=== PATIENT | female | born 1990 | race African-American/Black ===

== ENCOUNTER 2020-05-24 15:32 | Emergency (ER) | payer OTHER, SELFPAY ==
--- NOTE | ~2020-05-24 | XR_ITS ---
EXAMINATION: XR forearm RT 2V DATE: 05/24/2020 16:18 INDICATION: Right forearm pain. TECHNIQUE: 2 views of right forearm were obtained. COMPARISON: None. FINDINGS: Bone alignment is normal. No fracture. Joint spaces are well maintained. There is no elbow joint effusion. IMPRESSION: 1. Normal right forearm. Reviewed, dictated and finalized at location B. IMPRESSION: 1. Normal right forearm.
[2020-05-24 15:43] VITALS: BP 123/76; PULSE 95; RESP 16; TEMP 36.7; O2SAT 99
--- NOTE | 2020-05-24 17:18 | ED.EXTPRO ---
HPI - Extremity Problem General Chief complaint: Extremity Problem,Nontraumatic Stated complaint: right wrist pain Time Seen by Provider: 05/24/20 17:03 Source: RN notes reviewed History of Present Illness HPI Narrative: Patient presents to emergency department from home for right thumb pain patient states patient began to have symptoms 2 weeks ago. She notes pain over the posterior aspect of the right thumb into the right wrist. Described as aching in nature. Patient states that time she wake up in the morning with some numbness in this region the resolves that she starts to move around in the morning. She states pain is worse with flexion of the wrist and extension of the thumb. She denies any direct trauma or injury. 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 Denies any other symptoms at this time denies any pain in the remainder of the right hand or elbow Related Data Allergies Allergy/AdvReac Type Severity Reaction Status Date / Time No Known Allergies Allergy Verified 05/24/20 15:47 Review of Systems Review of Systems: Narrative: Gen.: Denies fevers or chills Musculoskeletal: See HPI Neuro: Denies numbness, tingling, weakness Skin: Denies rash Endo: Denies DM PMFSH Past Medical History Medical History (Updated 05/24/20 @ 17:21 by Jose Angel Copeland DO) Patient denies significant medical history Social History Social History (Updated 05/24/20 @ 17:19 by Jose Angel Copeland DO) Smoking status: Current some day smoker Gender identity (if verbalized by the patient): Female Exam Narrative: Exam Narrative: APPEARANCE: No acute distress, nontoxic, resting in bed Eyes: EOMI HEENT: Normocephalic, atraumatic, RESPIRATORY: No respiratory distress MUSCULOSKELETAl: No tenderness to palpation over the right thumb or hand, radial pulse 2+, neurovascular intact, positive Agustina test no tenderness of the elbow full flexion and extension of the first PIP and MCP with pain with full extension and flexion of the MCP NEURO: Awake and alert. Following commands, speech normal, no focal deficits SKIN:: Warm, dry. Normal Color no rash or lesions Course Course Emergency Course: Discussed with patient results of workup and diagnosis. Discussed need for follow-up with primary care, proper use of medication, and reasons to return to the emergency department. Patient understands and agrees to current treatment plan Vital Signs Vital signs: Vital Signs Temperature 98.1 F 05/24/20 15:43 Pulse Rate 95 05/24/20 15:43 Respiratory Rate 16 05/24/20 15:43 Blood Pressure 123/76 05/24/20 15:43 Pulse Oximetry 99 05/24/20 15:43 Temperature 98.1 F 05/24/20 15:43 Pulse Rate 95 05/24/20 15:43 Respiratory Rate 16 05/24/20 15:43 Blood Pressure 123/76 05/24/20 15:43 Pulse Oximetry 99 05/24/20 15:43 MDM - Extremity (Nontraumatic) Imaging Data Radiologist's impression: ITS Impressions Forearm X-Ray 05/24/20 16:19 IMPRESSION: 1. Normal right forearm. Discharge Plan Discharge Clinical Impression: De Quervain's tenosynovitis Patient Disposition: Home, Self-Care Condition: Stable Instructions: Antibiotic Form, De Quervain Disease (ED) Additional Instructions: Return for increasing pain numbness or tingling in the extremities or any other symptoms of concern. Obtain a thumb spica splint from your local drugstore and wear it for the next 1 week Prescriptions: New ibuprofen [IBU] 600 mg tablet 600 mg PO Q6H PRN (Reason: pain) Qty: 20 RF: 0 Follow-up/Referrals: Cristobal Guzmán MD [Physician] - (Follow-up in 3 to 4 days for further orthopedic treatment and evaluation) PHYSICIAN,[employer] [Primary Care Provider] - Stand Alone Forms: Work/School Release IP Time of Disposition: 17:22
[2020-05-24] MEDS: IBUPROFEN 600 MG TABLET PO (17:35)
[2020-05-24 17:55] VITALS: PULSE 60; RESP 12
== END 2020-05-24 18:00 | disposition home or self-care (01) ==
PROVIDERS: Emergency Provider Emergency Medicine
DX: M65.4 Radial styloid tenosynovitis [de Quervain] (principal); F17.200 Nicotine dependence, unspecified, uncomplicated
CPT/HCPCS: 73090; 99283; A9270

== ENCOUNTER 2021-02-11 19:14 | Emergency (ER) | payer OTHER, SELFPAY ==
--- NOTE | ~2021-02-11 | CT_ITS ---
EXAMINATION: CT abdomen pelvis w con INDICATION: Abdominal pain TECHNIQUE: Computed tomographic images of the abdomen and pelvis were obtained after the administrati on of 100 cc of Omnipaque 350 intravenous contrast. The dose-length product (DLP) was 883.96 mGy-cm. Automated exposure control and iterative reconstruction technique were employed. COMPARISON: 11/29/2015 FINDINGS: The lung bases are clear. The heart size is normal. The liver, spleen, pancreas, gallbladde r, and adrenal glands are normal. The kidneys are unremarkable. No pathologically enlarged abdominal or pelvic lymph nodes are identified. There is no free intraperitoneal gas or evidence of bowel obstr uction. The appendix is normal. There is a 6.1 cm soft tissue density lesion in the pelvis located po sterior to the uterus, likely related to the left ovary. There are phleboliths of the pelvis. The vis ualized osseous structures are unremarkable. IMPRESSION: 1. Soft tissue density lesion of the pelvis, possibly reflecting a hemorrhagic cyst of the left ovary . Further evaluation with pelvic ultrasound is recommended to assess this lesion and ovarian vascular flow. Reviewed, dictated and finalized at location A. IMPRESSION: 1. Soft tissue density lesion of the pelvis, possibly reflecting a hemorrhagic cyst of the left ovary. Further evaluation with pelvic ultrasound is recommende d to assess this lesion and ovarian vascular flow.
--- NOTE | ~2021-02-11 | US_ITS ---
EXAMINATION: US pelvic complete w TV DATE: 02/11/2021 23:53 INDICATION: Pelvic pain TECHNIQUE: Multiple transabdominal and endovaginal sonographic images of the pelvis were obtained. COMPARISON: CT from today FINDINGS: The uterus measures 8.4 x 4.4 x 4.9 cm. The endometrial complex measures 9 mm. There is foc al heterogeneity of the myometrium in the anterior uterus adjacent to the endometrial complex. The ri ght ovary measures 2.9 x 4.6 x 3.0 cm. There is a 2.1 x 1.3 cm cystic lesion of the right ovary with a reticular pattern of internal echoes. The left ovary measures 6.7 x 3.8 x 3.7 cm. There is a 4.4 x 3 cm lesion of the left ovary with homogeneous low-level internal echoes. There is normal vascular fl ow in the ovaries. There is no free fluid in the pelvis. IMPRESSION: 1. Normal vascular flow to the ovaries. 2. Likely endometrioma of the left ovary. Follow-up pelvic ultrasound in 6-12 weeks is recommended. 3. Hemorrhagic cyst of the right ovary. 4. Possible adenomyosis of the uterus. Attention on follow-up examination is recommended. Reviewed, dictated and finalized at location A. IMPRESSION: 1. Normal vascular flow to the ovaries. 2. Likely endometrioma of the left ovary. Follow-up pelvic ultrasound in 6-12 w eeks is recommended. 3. Hemorrhagic cyst of the right ovary. 4. Possible adenomyosis of the uterus. Attention on follow-up examination is re commended.
[2021-02-11 19:22] VITALS: BP 139/85; PULSE 108; RESP 18; TEMP 37.4; O2SAT 99
[2021-02-11 19:38] LABS: Basophils Percent Auto 0.1 % (0.2-1.2); Eosinophils Percent Auto 0.1 % (0-4.4); Hematocrit 33.2 % (37.0-47.0); Hemoglobin 11.8 g/dL (12.0-15.0); Immature Granulocyte Absolute 0.05 K/mm3 (0.00-0.031); Immature Granulocyte Percent A 0.4 % (0-0.5); Lymphocytes Absolute Auto 1.27 K/mm3 (0.9-3.2); Lymphocytes Percent Auto 10.4 % (18.3-44.2); Mean Corpuscular HGB Conc 35.5 g/dl (32-36); Mean Corpuscular Hemoglobin 27.5 pg (26-34); Mean Corpuscular Volume 77.4 fl (80-100); Mean Platelet Volume 10.3 fl (7.4-10.4); Monocytes Absolute Auto 0.6 K/mm3 (0.1-0.6); Monocytes Percent Auto 5.2 % (2.6-8.5); Neutrophils Absolute Auto 10.2 K/mm3 (1.3-6.7); Neutrophils Percent Auto 83.8 % (45.5-73.1); Platelet Count Result 277 k/mm3 (150-375); Red Blood Count 4.29 M/mm3 (4.2-5.4); Red Cell Distribution Width 15.5 % (11.5-14.5); White Blood Count 12.2 K/mm3 (4.5-10.0)
[2021-02-11 19:49] LABS: Alanine Aminotransferase 24 U/L (4-35); Albumin Level 4.3 g/dL (3.5-5.1); Alkaline Phosphatase 63 U/L (38-126); Anion Gap 9 mmol/L (8-16); Aspartate Amino Transferase 24 U/L (14-36); Bilirubin,Total 0.9 mg/dL (0.2-1.3); Blood Urea Nitrogen 7 mg/dL (7-17); Calcium 9.1 mg/dL (8.4-10.2); Carbon Dioxide 24 mmol/L (22-30); Chloride 103 mmol/L (98-107); Estimated CRCL calculation 129 ml/min; Estimated Glomerular Filt Rate > 60; Glucose 100 mg/dL (65-105); Lipase 32 U/L (23-300); Potassium 3.7 mmol/L (3.4-5.0); Sodium 136 mmol/L (137-145)
[2021-02-11 20:15] LABS: Add Urine Microscopic? YES; Appearance Urine Cloudy (Clear); Bacteria Urine Trace /hpf; Bilirubin Urine Negative (Negative); Blood Urine Negative (Negative); Color Urine Yellow (Yellow); Glucose Urine UA Negative (Negative); Ketones Urine Negative (Negative); Leukocyte Esterase Ur Negative LEU/UL (Negative); Mucus Urine Heavy /lpf; Nitrate Urine Negative (Negative); Protein Urine 1+ mg/dL (Negative); Specific Grav Ur 1.028 (1.001-1.035); Squamous Epithelial Cell Urine Many /hpf (Few); WBC Urine 0-3 /hpf
[2021-02-11 20:34] VITALS: BP 146/88; PULSE 96; RESP 26; TEMP 38.2; O2SAT 100
--- NOTE | 2021-02-11 20:38 | PC.NURSE ---
Pt presents to ED with complaints of abdominal pain that has been persistent for the past 2 days. Pt denies sick contacts and states she has been experiencing nausea, emesis, chills and diarrha. X3 episodes of emesis today and x2 episodes of diarrhea. 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 Pt noted to be alert and oriented x4 and in no obvious distress with stable vitals. Call button and personal items within reach. Pt advised to press call button for assistance.
--- NOTE | 2021-02-11 20:50 | ED.ABDPAIN ---
HPI - Abdominal Pain General Chief Complaint: Abdominal Pain Stated Complaint: abdominal pain Time Seen by Provider: 02/11/21 19:38 Source: patient Mode of arrival: ambulatory Limitations: no limitations History of Present Illness HPI narrative: Patient is a 30 year old female who presents with complaints of abdominal pain x 2 days. She reports nausea, vomiting and diarrhea. She reports pain is pressure and cramping . She denies sick contacts, she denies taking over the counter medications.She denies significant medical history. MD elicited complaint: abdominal pain Related Data Allergies Allergy/AdvReac Type Severity Reaction Status Date / Time No Known Allergies Allergy Verified 02/11/21 19:25 Review of Systems Review of Systems: Narrative: CONSTITUTIONAL: Denies fever, chills, or sweats. EYES: Denies visual changes, redness, or discharge. ENT: Denies rhinorrhea, congestion, sore throat, or otalgia. CARDIOVASCULAR: Denies chest pain, palpitations, or edema. RESPIRATORY: Denies cough or dyspnea. GASTROINTESTINAL: Reports abdominal pain, nausea, vomiting, or diarrhea. GENITOURINARY: Denies dysuria or hematuria. SKIN: Denies rash or itching. MUSCULOSKELETAL: Denies back pain, joint pain, or myalgia. NEUROLOGIC: Denies headache, numbness, dizziness, or weakness. PSYCHIATRIC: Denies anxiety or depression. [facility] Past Medical History Medical History (Updated 02/12/21 @ 00:42 by ALBA You) Patient denies significant medical history Social History Social History (Updated 02/11/21 @ 20:55 by ALBA You) Smoking status: Current some day smoker Tobacco type: cigarettes Alcohol intake: current Alcohol use details: occasional Gender identity (if verbalized by the patient): Female Exam Narrative: Exam Narrative: GENERAL: Well-appearing, well-nourished, and in no acute distress. HEAD: Normocephalic, atraumatic. EYES: EOMI. No redness or drainage. Conjunctiva are normal. ENT: Mucous membranes pink and moist. CHEST: No respiratory distress. Clear to auscultation. HEART: Regular rate and rhythm. No murmur appreciated. Normal peripheral pulses. GI: Soft, nontender without rebound, or guarding. No distention. Bowel sounds normal in all quadrants. MUSCULOSKELETAL: No bony tenderness. EXTREMITIES: Normal range of motion. No edema. SKIN: Warm, dry, no rash. NEURO: No focal deficits. Alert and oriented x3. Gait steady. PSYCH: Normal affect. No signs of depression or anxiety. Course Vital Signs Vital signs: Vital Signs Temperature 37.4 C 02/11/21 19:22 Pulse Rate 108 H 02/11/21 19:22 Respiratory Rate 18 02/11/21 19:22 Blood Pressure 139/85 02/11/21 19:22 Pulse Oximetry 99 02/11/21 19:22 Temperature 38.2 C H 02/11/21 20:34 Pulse Rate 73 02/12/21 00:08 Respiratory Rate 20 02/12/21 00:08 Blood Pressure 133/74 02/12/21 00:08 Pulse Oximetry 98 02/12/21 00:08 . Reviewed-patient is informed that they may have pre-hypertension or hypertension based on a blood pressure reading. I recommend the patient call the primary care provider listed on their discharge instructions or a physician of their choice this week to arrange follow-up for further evaluation of possible pre-hypertension or hypertension. MDM - Abdominal Pain MDM Narrative Medical decision making narrative: Discussed with patient the need for follow up ultrasound and follow up with OBGYN. Patient agrees with plan of care. Patient is stable for discharge to home with outpatient follow up as discussed. Differential Diagnosis Differential diagnosis: Likely abdominal pain, acute appendicitis, diverticulitis, gastroenteritis and pancreatitis Medical Records Attestation: I reviewed the patient's medical records. Lab Data Attestation: I reviewed the patient's lab results. Result diagrams: 02/11/21 19:31 02/11/21 19:31 Labs: Lab Results 02/11/21 02/11/21 02/11/21 Range/
--- NOTE | 2021-02-11 21:14 | PC.NURSE ---
Pt to and from radiology via cart and is now back in room resting on cart. Pt remains a/o x4 with stable vitals and in no obvious distress.
[2021-02-11] MEDS: ONDANSETRON INJ 4 MG/2 ML VIAL IV PUSH (21:19)
[2021-02-11] MEDS: SODIUM CHLORIDE 0.9% IV 1,000 ML 999 ML IV CONT (21:19)
[2021-02-11 21:21] VITALS: BP 127/74; PULSE 92; RESP 25; O2SAT 99
--- NOTE | 2021-02-11 21:40 | PC.NURSE ---
Pt resting comfortably on cart with no complaints or concern voiced at this time. Vitals remains stable and pt in no obvious distress. Pain improved and is now rated 8/10. Call light and personal items within reach. Pt advised to press call button for assistance.
--- NOTE | 2021-02-11 22:37 | PC.NURSE ---
Pt resting on cart playing on phone and states pain is now 5/10. No further complaints or concerns voiced. Advised to press call button for assistance.
[2021-02-12 00:08] VITALS: BP 133/74; PULSE 73; RESP 20; O2SAT 98
--- NOTE | 2021-02-12 00:44 | PC.NURSE ---
EDNP presented to bedside to update pt on poc. All questions and concerns addressed.
[2021-02-12 00:49] VITALS: BP 133/74; PULSE 73; RESP 20; TEMP 37.3; O2SAT 98
[2021-02-12 00:51] VITALS: BP 133/74; PULSE 73; RESP 20; TEMP 37.3; O2SAT 98
== END 2021-02-12 00:52 | disposition home or self-care (01) ==
PROVIDERS: Emergency Medicine; Emergency Provider Nurse Practitioner
DX: N83.201 Unspecified ovarian cyst, right side (principal); F17.210 Nicotine dependence, cigarettes, uncomplicated
CPT/HCPCS: 36415; 74177; 76830; 76856; 80053; 81001; 81025; 83690; 85025; 96361; 96374; 96375; 99284; J0131; J2405; J7030; Q9967